=== PATIENT | male | born 1940 | race Caucasian/White ===

== ENCOUNTER 2017-02-07 02:17 | Inpatient (IN) ==
[2017-02-01 12:02] LABS: MANUAL DIFF NEEDED? NO; URINE MICRO REVIEW NEEDED? NO; URINE SOURCE CLEAN CATCH
[2017-02-01 12:05] LABS: BASO% 0.4 % (0.0-0.8); BILIRUBIN URINE NEGATIVE (NEGATIVE); BLOOD URINE NEGATIVE (NEGATIVE); COLOR YELLOW; EOS# 0.19 X1000 (0.0-0.7); EOS% 2.3 % (0.0-10.0); GLUCOSE URINE NEGATIVE (NEGATIVE); HEMATOCRIT 45.6 % (42.0-52.0); IMM GRAN# 0.02 X1000 (0.0-0.04); IMM GRAN% 0.2 % (0.0-0.5); LEUKOCYTES URINE NEGATIVE (NEGATIVE); LYMPH# 0.96 X1000 (1.2-3.4); LYMPH% 11.8 % (20.5-51.1); MCH 29.8 PG (27-31); MCHC 32.9 g/dL (33-37); MCV 90.7 FL (81-99); MONO# 0.61 X1000 (0.11-0.59); MONO% 7.5 % (1.7-9.3); MPV 9.3 FL (7.4-10.4); NEUT% 77.8 % (42.2-75.2); NITRITE URINE NEGATIVE (NEGATIVE); PH URINE 5.5; PLT 235 X1000 (130-400); PROTEIN URINE NEGATIVE (NEGATIVE); RBC 5.03 XMIL (4.7-6.1); SP GRAVITY URINE 1.012; TURBIDITY URINE CLEAR (CLEAR); UR EPITHELIAL CELLS <10 /HPF (<10); URINE BACTERIA NEGATIVE /HPF; URINE RBC <10 /HPF (<10); URINE WBC <10 /HPF (<10); UROBILINOGEN URINE NORMAL (NORMAL)
[2017-02-01 12:23] LABS: INR 0.96; PROTIME 9.8 Seconds (9.2-11.7); PTT 23.7 Seconds (22.0-36.0)
--- NOTE | 2017-02-01 12:23 | EKG Report ---
Test Performed on : 02/01/2017 12:08:51 PM Test Reason : PAT Blood Pressure : / mmHG Vent. Rate : 049 BPM Atrial Rate : 049 BPM P-R Int : 194 ms QRS Dur : 140 ms QT Int : 418 ms P-R-T Axes : 066 030 047 degrees QTc Int : 377 ms Sinus bradycardia. Right bundle branch block Abnormal ECG When compared with ECG of 04-FEB-2015 15:50, premature supraventricular complexes. are no longer present Vent. rate has decreased BY 26 BPM QT has shortened Confirmed by Dariana GARVIN, Trevor Kenney ([id number]) on 02/01/2017 3:25:33 PM
[2017-02-01 13:02] LABS: CALCIUM 10.4 mg/dL (8.8-10.2); POTASSIUM 5.1 mmol/L (3.5-5.1)
[2017-02-07] MEDS ORDERED: COLACE ONE (06:45)
[2017-02-07] MEDS ORDERED: PEPCID ONE (06:46)
[2017-02-07] MEDS ORDERED: KEFZOL 2 GM/D5W 50 ML ONE (06:46)
[2017-02-07] MEDS ORDERED: LR 1,000 ML ONE ×2 (06:46→11:15)
[2017-02-07] MEDS ORDERED: CELEBREX ONE (06:46)
[2017-02-07] MEDS ORDERED: LYRICA ONE (06:46)
[2017-02-07] MEDS ORDERED: REGLAN ONE (06:47)
[2017-02-07] MEDS ORDERED: MORPHINE IV PRN (06:57)
[2017-02-07] MEDS ORDERED: TORADOL ONE (07:53)
[2017-02-07] MEDS ORDERED: DURAMORPH ONE (07:53)
[2017-02-07] MEDS ORDERED: MARCAINE 0.25% PF/EPI 1:200,000 ONE (07:54)
[2017-02-07] MEDS ORDERED: VANCOMYCIN ONE (07:54)
[2017-02-07] MEDS ORDERED: SODIUM CHLORIDE 0.9% ONE (07:54)
[2017-02-07] MEDS ORDERED: CYKLOKAPRON 1,000 MG/NS 100 ML ONE (07:54)
[2017-02-07] MEDS ORDERED: EXPAREL 1.3% ONE (07:55)
[2017-02-07] MEDS ORDERED: NEOSPORIN G.U. IRRIGANT ONE (07:55)
[2017-02-07] MEDS ORDERED: FENTANYL ONE (08:10)
[2017-02-07] MEDS ORDERED: DIPRIVAN 1% 50 ML ONE (08:10)
--- NOTE | 2017-02-07 08:17 | HISTORY AND PHYSICAL ---
CHIEF COMPLAINT: Right knee pain. HISTORY OF PRESENT ILLNESS: Mr. Farris is a 77-year-old white male who has experienced progressive right knee pain for some time. He has pain with weightbearing activities. He has a history of a remote right knee injury. Radiographic examination of the right knee reveals findings consistent with advanced degenerative joint disease. Despite conservative therapy, he still has a significant reduction in his ability to perform his normal daily activities, and he will be admitted at this time for a right total knee arthroplasty. PRIMARY CARE PROVIDER: Becka Prado. ALLERGIES: No known drug allergies. PAST MEDICAL HISTORY: 1. Osteoarthritis. 2. Hxm-vuyjxfl-xqzrlwwkw diabetes mellitus. 3. Gastroesophageal reflux disease. 4. Dyslipidemia. PAST SURGICAL HISTORY: 1. Appendectomy. 2. Cholecystectomy. 3. Cataract surgery. SOCIAL HISTORY: The patient is a remote smoker. He is . CURRENT MEDICATIONS: 1. Zocor 40 at bedtime. 2. Prinivil 40 twice daily. 3. Acarbose 100 mg by mouth three times a day. 4. Metoprolol 50 mg twice daily. 5. Glipizide ER two tablets twice daily. 6. Protonix 40 mg daily. REVIEW OF SYSTEMS: HEENT: Denies any history of stroke or cerebrovascular disease. No recent dizzy spells or syncopal events. Cardiac: The patient denies any coronary artery disease or valvular heart disease. No chest pain, pressure, or other anginal equivalents. Pulmonary: The patient is a remote smoker with no chronic lung disease. Gastrointestinal: He has a history of gastroesophageal reflux disease. Denies recent nausea, vomiting, diarrhea, or constipation. Genitourinary: No recent kidney or bladder infection or dysfunction. Neurological: Denies extremity radicular pain, weakness, or paresthesia. Musculoskeletal. He is here today for management of his osteoarthritic right knee. Other: He has a history of dyslipidemia and non- insulin-dependent diabetes mellitus. PHYSICAL EXAMINATION: GENERAL: The patient is resting comfortably in bed. He is articulate and able to answer all questions fully. HEENT: Head is atraumatic and normocephalic. Pupils are equal and round, react to light. Nares are patent. Throat without exudate. NECK: Supple. HEART: Regular rate and rhythm, no murmurs, gallops, or rubs. LUNGS: Clear to auscultation bilaterally. ABDOMEN: Round. Bowel sounds are present. It is nontender. GENITOURINARY: Not examined. NEUROLOGICAL: He discerns soft touch in the affected extremity. Gross motor function is intact. MUSCULOSKELETAL: Right knee: No deformity, edema, or ecchymosis is noted. He has a good peripheral pulses. IMPRESSION: Degenerative joint disease of the right knee. PLAN: Right total knee arthroplasty. The risks and benefits of surgery were explained to the patient including the risks of anesthesia, , bleeding, infection, damage to tendons, ligaments, nerves, blood vessels. The possibility of blood clots and other imponderables were discussed, and the patient wishes to proceed with operative management at this time. Dictated by TRUNG Baez for Mikal Castro MD
[2017-02-07] MEDS ORDERED: GLIPIZIDE PO SCH (09:00)
[2017-02-07 09:10] LABS: URINE MICRO REVIEW NEEDED? NO; URINE SOURCE CATH
[2017-02-07 09:16] LABS: BILIRUBIN URINE NEGATIVE (NEGATIVE); BLOOD URINE NEGATIVE (NEGATIVE); COLOR YELLOW; GLUCOSE URINE NEGATIVE (NEGATIVE); LEUKOCYTES URINE NEGATIVE (NEGATIVE); NITRITE URINE NEGATIVE (NEGATIVE); PH URINE 5.5; PROTEIN URINE NEGATIVE (NEGATIVE); SP GRAVITY URINE 1.022; TURBIDITY URINE CLEAR (CLEAR); UR EPITHELIAL CELLS <10 /HPF (<10); URINE BACTERIA NEGATIVE /HPF; URINE RBC <10 /HPF (<10); URINE WBC <10 /HPF (<10); UROBILINOGEN URINE NORMAL (NORMAL)
[2017-02-07] MEDS ORDERED: VERSED ONE ×2 (10:51)
[2017-02-07] MEDS ORDERED: NS 1,000 ML ONE (10:54)
[2017-02-07] MEDS ORDERED: SODIUM CHLORIDE 0.9% 10 ML ONE (11:14)
[2017-02-07] MEDS ORDERED: NEO-SYNEPHRINE ONE (11:14)
[2017-02-07] MEDS ORDERED: ZOFRAN ONE (11:14)
[2017-02-07] MEDS ORDERED: DECADRON ONE (11:15)
[2017-02-07] MEDS ORDERED: XYLOCAINE-MPF 2% ONE (11:15)
[2017-02-07] MEDS ORDERED: EPHEDRINE ONE (11:15)
[2017-02-07] MEDS ORDERED: OFIRMEV 1000 MG/ISOTONIC SOLN 100 ML ONE (11:15)
--- NOTE | 2017-02-07 11:44 | Diag Imaging Result Document ---
PROCEDURE NAME: KNEE 1-2 VIEWS-RIGHT - 02/07/2017 PLAIN RADIOGRAPHS OF THE RIGHT KNEE, 2 VIEWS: COMPARISON: None available. FINDINGS: There has been a recent right knee arthroplasty. The arthroplasty hardware is in the expected position. There is no evidence of periprosthetic fracture. Anterior skin ora and a drainage catheter are in place. IMPRESSION: Satisfactory postoperative knee.
[2017-02-07] MEDS: NS 1,000 ML IV SCH ×2 (13:08→22:10)
[2017-02-07] MEDS: LOPRESSOR PO SCH ×2 (13:09→22:11)
[2017-02-07] MEDS: PRINIVIL PO SCH ×2 (13:09→22:11)
[2017-02-07] MEDS: PRECOSE PO SCH ×3 (13:09→17:56)
--- NOTE | 2017-02-07 14:06 | OPERATIVE NOTE ---
PROCEDURE DATE: 02/07/2017 PREOPERATIVE DIAGNOSIS: Degenerative joint disease, right knee. POSTOPERATIVE DIAGNOSIS: Degenerative joint disease, right knee. PROCEDURE PERFORMED: Right total knee replacement. SURGEON: Eleno Castro MD BUN MACHINE OPERATOR: TRUNG Baez ANESTHESIA: Spinal. COMPLICATIONS: None. PROCEDURE IN DETAIL: This 77-year-old male with right DJD of the knee presents for surgical knee replacement. Risks, benefits, and no guarantees were discussed, and he was willing to proceed. He was taken to the operating room and satisfactory anesthesia obtained. The right leg was prepped and draped in usual sterile fashion. A time-out was taken to confirm operative site, procedure, and patient. The leg was wrapped with an Esmarch and tourniquet inflated to 350 mmHg. A midline incision was made over the front of the knee, followed by a quadriceps tendon-sparing arthrotomy. The patella was everted and resurfaced with freehand technique and later sized to a 41 medialized dome patella. With the patella subluxed laterally, the knee was flexed. An intramedullary hole was made in the distal femur. A distal femoral cutting block was secured in 5 degrees of valgus and the distal femoral resection made. The femur was then sized to a size 6 DePuy Attune femoral component. The 4-in-1 block was secured and the anterior, posterior, and chamfer cuts sequentially made. The PCL was retained. The knee was flexed. A PCL retractor was placed behind the tibia to protect the PCL and neurovascular bundle. The tibial cutting block was positioned with an extramedullary alignment elodia and tibial resection made. Slight tightness laterally was noted and a popliteus release was undertaken with correction of this. Any osteophytes were debrided about the femur or tibia at this time. The tibia was sized to a size 7 tibial tray. Trial reduction was performed with a 6 mm thick trial poly with good range of motion and stability. The lug holes were then drilled for the femoral implant as well as for a 41 patella. The trial components were removed and the bony surfaces thoroughly irrigated with pulsatile lavage. Cement with a gram of vancomycin was then utilized to cement a DePuy Attune size 7 rotating platform tibial tray, a size 6 cruciate-retaining right femoral component, and a 41 medialized dome patella. While the cement cured, the excess cement was removed with a [place] elevator. The joint capsule was injected with Exparel for pain management and a Hemovac drain placed. After curing of the cement, a size 6, 6 mm thick rotating platform tibial poly was inserted in the tibial tray and the knee reduced. Final range of motion was assessed with 0-120 degrees of flexion with midline patellar tracking and excellent soft tissue balance. The arthrotomy was then copiously irrigated and closed over the drain with #1 Vicryl in the arthrotomy, 2-0 Vicryl in the subcu, and skin ora on the skin. Sterile dressings completed the closure and the patient was recovered from anesthesia and transferred to the recovery room in stable condition. No intraoperative complications were noted. Instrument and sponge counts were correct at the time of closure.
[2017-02-07] MEDS: CELEBREX PO SCH (14:25)
[2017-02-07] MEDS: COLACE PO SCH ×2 (14:25→22:12)
[2017-02-07] MEDS: NORCO-10 PO PRN ×3 (15:13→22:11)
[2017-02-07] MEDS: KEFZOL 1 GM/D5W 50 ML IV SCH (17:56)
[2017-02-07] MEDS ORDERED: ZOCOR PO SCH (21:00)
[2017-02-07] MEDS: PERIDEX MT SCH (22:10)
[2017-02-08] MEDS: KEFZOL 1 GM/D5W 50 ML IV SCH (01:25)
[2017-02-08] MEDS: NS 1,000 ML IV SCH (02:14)
[2017-02-08] MEDS: XARELTO PO SCH ×2 (04:16→06:13)
[2017-02-08] MEDS: NORCO-10 PO PRN ×2 (04:16→08:26)
[2017-02-08] MEDS: PROTONIX PO SCH ×2 (04:19→08:25)
[2017-02-08 06:17] LABS: HEMATOCRIT 30.4 % (42.0-52.0); HEMOGLOBIN 9.8 g/dL (14.0-18.0)
[2017-02-08] MEDS: COLACE PO SCH (08:25)
[2017-02-08] MEDS: CELEBREX PO SCH (08:25)
[2017-02-08] MEDS: PRINIVIL PO SCH (08:25)
[2017-02-08] MEDS: PRECOSE PO SCH (08:26)
[2017-02-08] MEDS: PERIDEX MT SCH (08:27)
[2017-02-08] MEDS: LOPRESSOR PO SCH (08:29)
[2017-02-08 11:12] VITALS: BP 139/59
--- NOTE | 2017-02-08 16:37 | DISCHARGE SUMMARY ---
ADMISSION DATE: 02/07/2017 DISCHARGE DATE: 02/08/2017 ADMITTING DIAGNOSIS: Degenerative joint disease right knee. ADDITIONAL DIAGNOSES: 1. Fyr-hymqlht-vmrjuyjky diabetes mellitus. 2. Gastroesophageal reflux disease. 3. Dyslipidemia. DISCHARGE DIAGNOSES: 1. Degenerative joint disease right knee. 2. Kiw-fgjwfri-dsuyqqwul diabetes mellitus. 3. Gastroesophageal reflux disease. 4. Dyslipidemia. ADMITTING HISTORY AND HOSPITAL COURSE: Mr. Farris is a 77-year-old, white male who was admitted to the hospital for a right total knee arthroplasty. After his surgery he remained afebrile. His vital signs remained stable. His hematocrit is currently 30.4. His creatinine is a little bit elevated at 1.7, it was 1.5 prior to surgery. I discussed this with the gentleman and told him he should follow up with his primary care provider about his elevated creatinine. His dressing was dry and clean. There was no discharge. No signs or symptoms of infection or DVT. He is currently ambulating 250 feet with a front wheel walker. We will plan to discharge him home today. He is going to have home health come out and work with him. DISCHARGE MEDICATIONS: 1. Zocor 40 mg p.o. at bedtime. 2. Metoprolol tartrate 50 mg p.o. b.i.d. 3. Protonix 40 mg p.o. daily. 4. 100 mg p.o. t.i.d. 5. Glipizide ER 2 tablets p.o. b.i.d. 6. Lisinopril 40 mg p.o. b.i.d. 7. Nolan 10, 1-2 p.o. q.4-6 hours p.r.n. for pain. 8. Xarelto 10 mg p.o. daily for 14 days. DISCHARGE INSTRUCTIONS: Mr. Farris is to be discharged home. He will begin home health and a home physical therapy regimen. I discussed with him the medications he will be taking, Xarelto and Nolan. I encouraged him to call us if he has any worsening signs or symptoms, fever, chills or drainage from his incision site as well as if he has any questions about his procedure. He will need to follow up with Dr. Castro in about 10 days and have his ora removed. Currently there are no signs or symptoms of infection or DVT. We will see him back in about 10 days. Dictated by DENILSON Snow for Mikal Castro MD
== END 2017-02-08 14:18 | disposition home health service (06) | DRG 470 ==
LOC: SURHOLD 02:17 → 4N 09:46 → DIRADM 02-08 12:54 → 4N 02-08 12:57
PROVIDERS: ADMIT Orthopaedic Surgery Adult Reconstructive Orthopaedic Surgery; ATTEND Orthopaedic Surgery Adult Reconstructive Orthopaedic Surgery
PROC: 0SRC0J9 Replacement of Right Knee Joint with Synthetic Substitute, Cemented, Open Approach (ICD-10-PCS; principal; 2017-02-07 08:47)
DX: M17.11 Unilateral primary osteoarthritis, right knee (principal); E11.9 Type 2 diabetes mellitus without complications; I10 Essential (primary) hypertension; K21.9 Gastro-esophageal reflux disease without esophagitis; E78.5 Hyperlipidemia, unspecified; Z87.891 Personal history of nicotine dependence; Z79.84 Long term (current) use of oral hypoglycemic drugs; Z79.899 Other long term (current) drug therapy
CPT/HCPCS: 73560; 80048; 81001; 82948; 85014; 85018; 85025; 85610; 85730; 86850; 86900; 86901; 88305; 88311; 93005; 93010; 94761; 94799; C9290; J0131; J0690; J1100; J1885; J2250; J2274; J2370; J2405; J3010; J3370; J7030; J7120; 97110-GP; 97116-GP; S0020